=== PATIENT | female | born 1955 | race Caucasian/White ===

== ENCOUNTER 2020-07-20 17:21 | Emergency (ER) | payer MEDICARE, SELFPAY ==
--- NOTE | 2020-07-20 17:28 | ED.GENADULT ---
HPI - General Adult General Chief complaint: Urogenital-Female Stated complaint: fever congestion UTI Time Seen by Provider: 07/20/20 17:50 Source: patient Mode of arrival: ambulatory Limitations: no limitations History of Present Illness HPI narrative: 64-year-old female patient presents to the [facility] with complaints of urinary symptoms and cold and cough symptoms. Patient states she has had frequency in urination and some low back pain that started yesterday. Patient states she also had a fever that got as high as 101 that she took Tylenol for and states that her fever did improve. Patient states she is also had a little bit of a runny nose and a stuffy nose. Denies any ear pain. Patient states she has a little bit of a sore throat/scratchy throat. Patient states she is a smoker and did smoke a lot of cigarettes yesterday which does tend to make her throat painful at times. Patient denies any chest pain, shortness of breath or coughing. Denies any abdominal pain, nausea vomiting or diarrhea. Related Data Allergies Allergy/AdvReac Type Severity Reaction Status Date / Time sulfamethoxazole Allergy Rash Verified 07/20/20 17:52 [From Bactrim] trimethoprim [From Bactrim] Allergy Rash Verified 07/20/20 17:52 Review of Systems Review of Systems: Narrative: CONSTITUTIONAL: Positive fever, denies chills, or sweats. EYES: Denies visual changes, redness, or discharge. ENT: Positive rhinorrhea, congestion, sore throat, denies otalgia. CARDIOVASCULAR: Denies chest pain, palpitations, or edema. RESPIRATORY: Denies cough or dyspnea. GASTROINTESTINAL: Denies abdominal pain, nausea, vomiting, or diarrhea. GENITOURINARY: Denies dysuria or hematuria. Positive increase in urinary frequency SKIN: Denies rash or itching. MUSCULOSKELETAL: Positive low back pain, denies joint pain, or myalgia. NEUROLOGIC: Denies headache, numbness, or weakness. PSYCHIATRIC: Denies anxiety or depression. PMFSH Comments At the time of my signature I agree with nursing past medical history, surgical, social, and family history. There is no relevant family history pertinent to the presenting complaint. Exam Narrative: Exam Narrative: GENERAL: Well-appearing, well-nourished, and in no acute distress. HEAD: Normocephalic, atraumatic. EYES: PERRLA and EOMI. ENT: Nares clear, no rhinorrhea or epistaxis. Mucous membranes moist. Posterior pharynx no erythema, tonsillectomy, exudates or lesions present. Bilateral TMs are clear with no erythema or foreign bodies to the canal. NECK: Supple. No lymphadenopathy CHEST: Clear to auscultation. No respiratory distress. HEART: Regular rate and rhythm. No murmur heard. Normal peripheral pulses. ABDOMEN: Soft, nontender, nondistended, normal active bowel sounds. No CVA tenderness on percussion EXTREMITIES: Normal range of motion. No edema. SKIN: Warm, dry, no rash. NEURO: No focal deficits. Alert and oriented x3. Course Reevaluation(s) Reevaluation #1: Reevaluated patient. Discussed with her that her flu and strep are both negative today. Discussed with her that I we will go ahead and treat her with antibiotics for the urinary tract infection symptoms. Discussed with her that we will send it off to the lab and if it comes back showing that she did requires a different type of antibiotic we will call her and place her on a new antibiotic at that time. Discussed with her she can continue taking Tylenol and ibuprofen for her symptoms and increase her water intake. Patient verbalized understanding denies any other questions or concerns at this time. Date: 07/20/20 Time: 17:58 Vital Signs Vital signs: Vital Signs Temperature 36.9 C 07/20/20 17:30 Pulse Rate 66 07/20/20 17:30 Respiratory Rate 16 07/20/20 17:30 Pulse Oximetry 97 07/20/20 17:30 Temperature 36.9 C 07/20/20 17:30 Pulse Rate 66 07/20/20 17:30 Respiratory Rate 16 07/20/20 17:30 Pulse Oximetry 97 07/20/20 17:30 Vital signs rev
[2020-07-20 17:30] VITALS: PULSE 66; RESP 16; TEMP 36.9; O2SAT 97
[2020-07-20 18:01] VITALS: BP 110/70
== END 2020-07-20 18:13 | disposition home or self-care (01) ==
PROVIDERS: Emergency Provider Nurse Practitioner Family
DX: N30.00 Acute cystitis without hematuria (principal); E78.00 Pure hypercholesterolemia, unspecified; I10 Essential (primary) hypertension; M19.90 Unspecified osteoarthritis, unspecified site
CPT/HCPCS: 81003; 87081; 87086; 87804; 87880; 99213; G0463

== ENCOUNTER 2021-08-04 12:25 | Emergency (ER) | payer MEDICARE, SELFPAY ==
[2021-08-04 12:45] VITALS: BP 110/70; PULSE 60; RESP 18; TEMP 36.9; O2SAT 99
[2021-08-04 13:05] VITALS: BP 110/70; PULSE 60; RESP 18; TEMP 36.9; O2SAT 99
--- NOTE | 2021-08-04 13:40 | ED.URI ---
HPI - URI/Sore Throat General Chief Complaint: Upper Respiratory Infection Stated Complaint: sore throat Time Seen by Provider: 08/04/21 13:40 Source: patient, RN notes reviewed and old records reviewed Mode of arrival: ambulatory Limitations: no limitations History of Present Illness HPI Narrative: 65 year old female who presents to [facility] care with complaints of sore throat, cough, head congestion post nasal drainage, nasal drainage, headache, tiredness with some wheezing for the past 5-6 days. She reports that initially she had a fever of 100.4 but none since. Patient states that cough is loose at times with expectoration of brownish sputum, denies any acute dyspnea.Patient states that she had COVID vaccination January of 2021.Patient does have history of arthritis and lupus and is on methotrexate. Patient reports that she has been using Flonase for her sinus symptoms. MD elicited complaint: cough and sore throat Related Data Home Medications Medication Instructions Recorded Confirmed amlodipine 10 mg PO DAILY 08/04/21 08/04/21 cariprazine [Vraylar] 1.5 mg PO DAILY 08/04/21 08/04/21 chlordiazepoxide HCl 5 mg PO QID 08/04/21 08/04/21 cholecalciferol (vitamin D3) 25 mcg PO DAILY 08/04/21 08/04/21 [Vitamin D3] dicyclomine 20 mg PO QID PRN 08/04/21 08/04/21 diphenoxylate-atropine 1 tablet PO Q4H PRN 08/04/21 08/04/21 duloxetine 60 mg PO DAILY 08/04/21 08/04/21 fluticasone propionate See Rx Instructions .ROUTE .COMPLEX 08/04/21 08/04/21 folic acid 1 mg PO DAILY 08/04/21 08/04/21 hydrocodone-acetaminophen 1 tablet PO Q6H PRN 08/04/21 08/04/21 hydroxychloroquine 200 mg PO BID 08/04/21 08/04/21 levothyroxine 88 mcg PO DAILY 08/04/21 08/04/21 methotrexate sodium See Rx Instructions .ROUTE .COMPLEX 08/04/21 08/04/21 nebivolol [Bystolic] 10 mg PO DAILY 08/04/21 08/04/21 pitavastatin calcium [Livalo] 4 mg PO DAILY 08/04/21 08/04/21 temazepam 30 mg PO HS PRN 08/04/21 08/04/21 tizanidine 4 mg PO DAILY PRN 08/04/21 08/04/21 trimethobenzamide 300 mg PO TID 08/04/21 08/04/21 Allergies Allergy/AdvReac Type Severity Reaction Status Date / Time sulfamethoxazole Allergy Rash Verified 08/04/21 12:43 [From Bactrim] trimethoprim [From Bactrim] Allergy Rash Verified 08/04/21 12:43 Review of Systems Review of Systems: CONSTITUTIONAL: Denies known fever since initial episode of low grade temperature, no chills, or sweats. EYES: Denies visual changes, redness, or discharge. ENT: Positive rhinorrhea, congestion, sore throat, no otalgia. CARDIOVASCULAR: Denies chest pain, palpitations, or edema. RESPIRATORY:Positive for cough denies any acute dyspnea. GASTROINTESTINAL: Denies abdominal pain, nausea, vomiting, or diarrhea. GENITOURINARY: Denies dysuria or hematuria. SKIN: Denies rash or itching. MUSCULOSKELETAL: Denies back pain, joint pain, or myalgia. NEUROLOGIC: Positive for headache,no numbness, or weakness, reports tiredness PSYCHIATRIC: Positive for history of anxiety or depression. All systems reviewed & are unremarkable except as noted in HPI and below PMFSH Past Medical History Medical History (Updated 08/07/21 @ 21:15 by Patience Simpson NP) Arthritis Bipolar 1 disorder, mixed Elevated cholesterol Hypertension Lupus Surgical History Surgical History (Updated 08/07/21 @ 21:17 by Patience Simpson NP) History of tonsillectomy Family History Family History (Updated 08/07/21 @ 21:17 by Patience Simpson NP) Other Family history non-contributory Social History Social History (Updated 08/07/21 @ 21:18 by Patience Simpson NP) Smoking packs per day: 0.5 Smoking cigarettes per day: 10.0 Years smoked: 10 Smoking pack-years: 5.00 Smoking status: Current every day smoker Tobacco type: cigarettes Alcohol intake: current Alcohol use details: rare social Substance use: never Living arrangements: with family Gender identity (if verbalized by the patient): Female Comments At time of signatur
== END 2021-08-04 14:10 | disposition home or self-care (01) ==
PROVIDERS: Emergency Provider Registered Nurse
DX: J02.9 Acute pharyngitis, unspecified (principal); R05.9 Cough, unspecified; Z20.822 Contact with and (suspected) exposure to COVID-19; F17.210 Nicotine dependence, cigarettes, uncomplicated; M19.90 Unspecified osteoarthritis, unspecified site; E78.00 Pure hypercholesterolemia, unspecified; I10 Essential (primary) hypertension
CPT/HCPCS: 87081; 87426; 87880; 99213; C9803; G0463

== ENCOUNTER 2022-01-18 10:51 | Emergency (ER) | payer MEDICARE, SELFPAY ==
--- NOTE | ~2022-01-18 | XR_ITS ---
EXAMINATION: XR chest 2V DATE: 01/18/2022 11:19 INDICATION: Cough and wheezing. TECHNIQUE: Frontal and lateral views of the chest were obtained. COMPARISON: None. FINDINGS: The chest demonstrates clear lungs without pneumonia, pleural effusion, or pneumothorax. Th e heart size is normal. IMPRESSION: 1. No acute cardiopulmonary disease. Reviewed, dictated and finalized at location A.
--- NOTE | 2022-01-18 10:55 | ED.URI ---
HPI - URI/Sore Throat General Chief Complaint: Upper Respiratory Infection Stated Complaint: cough and wheezing Time Seen by Provider: 01/18/22 10:57 Source: patient and RN notes reviewed History of Present Illness HPI Narrative: Patient is a 66-year-old female presents the urgent care with complaints of cough, runny nose and chest congestion. Patient states that she is now wheezing at night. Patient denies any fever or ill contacts. States that it started approximately 2 to 3 weeks ago and seems to have worsened. Patient has been taking Claritin and Mucinex. Denies of any shortness of breath or chest pain. No other acute complaints. No acute distress noted. Patient aware of the plan of care. Some parts of this dictation were generated by voice recognition software and may contain typographical and/or grammatical inaccuracies. Related Data Home Medications Medication Instructions Recorded Confirmed amlodipine 10 mg PO DAILY 08/04/21 01/18/22 cariprazine [Vraylar] 1.5 mg PO DAILY 08/04/21 01/18/22 chlordiazepoxide HCl 5 mg PO QID 08/04/21 01/18/22 cholecalciferol (vitamin D3) 25 mcg PO DAILY 08/04/21 01/18/22 [Vitamin D3] dicyclomine 20 mg PO QID PRN 08/04/21 01/18/22 diphenoxylate-atropine 1 tablet PO Q4H PRN 08/04/21 01/18/22 duloxetine 60 mg PO DAILY 08/04/21 01/18/22 fluticasone propionate See Rx Instructions .ROUTE .COMPLEX 08/04/21 01/18/22 folic acid 1 mg PO DAILY 08/04/21 01/18/22 hydrocodone-acetaminophen 1 tablet PO Q6H PRN 08/04/21 01/18/22 hydroxychloroquine 200 mg PO BID 08/04/21 01/18/22 levothyroxine 88 mcg PO DAILY 08/04/21 01/18/22 methotrexate sodium See Rx Instructions .ROUTE .COMPLEX 08/04/21 01/18/22 nebivolol [Bystolic] 10 mg PO DAILY 08/04/21 01/18/22 pitavastatin calcium [Livalo] 4 mg PO DAILY 08/04/21 01/18/22 temazepam 30 mg PO HS PRN 08/04/21 01/18/22 tizanidine 4 mg PO DAILY PRN 08/04/21 01/18/22 trimethobenzamide 300 mg PO TID 08/04/21 08/04/21 Allergies Allergy/AdvReac Type Severity Reaction Status Date / Time erythromycin base Allergy Vomiting Verified 01/18/22 11:08 sulfamethoxazole Allergy Rash Verified 08/04/21 12:43 [From Bactrim] trimethoprim [From Bactrim] Allergy Rash Verified 08/04/21 12:43 Review of Systems Review of Systems: CONSTITUTIONAL: Denies fever, chills, or sweats. EYES: Denies visual changes, redness, or discharge. ENT: Reports of rhinorrhea and postnasal drainage CARDIOVASCULAR: Denies chest pain, palpitations, or edema. RESPIRATORY: Reports of cough, chest congestion wheezing GASTROINTESTINAL: Denies abdominal pain, nausea, vomiting, or diarrhea. GENITOURINARY: Denies dysuria or hematuria. SKIN: Denies rash or itching. MUSCULOSKELETAL: Denies back pain, joint pain, or myalgia. NEUROLOGIC: Denies headache, numbness, or weakness. All other systems reviewed are negative, except as documented in HPI. [facility] Past Medical History Medical History (Updated 01/18/22 @ 11:35 by LIV Gimenez) Arthritis Bipolar 1 disorder, mixed Elevated cholesterol Hypertension Lupus Surgical History Surgical History (Updated 08/07/21 @ 21:17 by Patience Simpson NP) History of tonsillectomy Family History Family History (Updated 08/07/21 @ 21:17 by Patience Simpson NP) Other Family history non-contributory Social History Social History (Updated 08/07/21 @ 21:18 by Patience Simpson NP) Smoking packs per day: 0.5 Smoking cigarettes per day: 10.0 Years smoked: 10 Smoking pack-years: 5.00 Smoking status: Current every day smoker Tobacco type: cigarettes Alcohol intake: current Alcohol use details: rare social Substance use: never Gender identity (if verbalized by the patient): Female Comments At the time of my signature, I reviewed and agree with the nursing past medical, surgical, social, and family history. There is no relevant family history pertinent to the patient complaint. Exam Narrative: GENERAL: This is a we
[2022-01-18 10:58] VITALS: PULSE 66; RESP 14; TEMP 36.4; O2SAT 96
[2022-01-18 11:10] VITALS: BP 120/76
== END 2022-01-18 11:42 | disposition home or self-care (01) ==
PROVIDERS: Emergency Provider Nurse Practitioner Family
DX: J40 Bronchitis, not specified as acute or chronic (principal); F17.210 Nicotine dependence, cigarettes, uncomplicated; M19.90 Unspecified osteoarthritis, unspecified site; E78.00 Pure hypercholesterolemia, unspecified; I10 Essential (primary) hypertension
CPT/HCPCS: 71046; 99213; G0463